=== PATIENT | female | born 1995 | race Two or more races ===

== ENCOUNTER 2020-04-19 16:00 | Emergency (ER) | payer OTHER ==
[~2020-04-19] VITALS: Ht 157.5 cm; Wt 61.2 kg
== END 2020-04-19 20:22 | disposition home or self-care (01) ==
LOC: ER 16:00
DX: O20.0 Threatened abortion (principal)

== ENCOUNTER 2020-04-20 22:06 | Emergency (ER) | payer OTHER ==
[~2020-04-20] VITALS: Ht 157.5 cm; Wt 61.2 kg
== END 2020-04-21 05:07 | disposition home or self-care (01) ==
LOC: ER 22:06
DX: O03.9 Complete or unspecified spontaneous abortion without complication (principal)

== ENCOUNTER → 2020-10-23 | Outpatient (CLI) | payer OTHER | END | disposition home or self-care (01) | LOC: PRENATAL 09:19 | PROVIDERS: ATTEND Obstetrics & Gynecology Maternal & Fetal Medicine | DX: O35.0XX1 Maternal care for (suspected) central nervous system malformation in fetus, fetus 1 (principal); O35.3XX1 Maternal care for (suspected) damage to fetus from viral disease in mother, fetus 1; O98.512 Other viral diseases complicating pregnancy, second trimester; Z36.89 Encounter for other specified antenatal screening; Z3A.23 23 weeks gestation of pregnancy ==

== ENCOUNTER 2021-02-04 09:00 | Inpatient (IN) | payer OTHER ==
[~2021-02-04] VITALS: Ht 5.1 cm; Wt 69.9 kg
[2021-02-04] MEDS ORDERED: PRENATAL CAPLE1 EAC1 PO (09:30)
[2021-02-04] MEDS ORDERED: METOCLOPRAMIDE H5 MG (13:57)
[2021-02-07] MEDS ORDERED: Tylenol #3 PO (09:07)
== END 2021-02-07 12:21 | disposition home or self-care (01) | DRG 788 ==
LOC: O/R 09:00 → OB/GYN 09:00
PROVIDERS: ADMIT Obstetrics & Gynecology; ATTEND Obstetrics & Gynecology
PROC: 4A1HXFZ Monitoring of Products of Conception, Cardiac Rhythm, External Approach (ICD-10-PCS; 2021-02-04)
PROC: 10D00Z1 Extraction of Products of Conception, Low, Open Approach (ICD-10-PCS; principal; 2021-02-04 12:30)
DX: O32.1XX0 Maternal care for breech presentation, not applicable or unspecified (principal); Z37.0 Single live birth; Z3A.38 38 weeks gestation of pregnancy